=== PATIENT | male | born 1950 | race Caucasian/White ===

== ENCOUNTER 2019-06-04 21:13 | Observation (INO) | payer MEDICARE ==
[~2019-06-04] VITALS: Ht 180.3 cm; Wt 93.2 kg
[2019-06-04 21:45] LABS: BASOPHILS % (AUTO) 0.5 % (0-1); EOSINOPHILS # (AUTO) 0.4 X10'3 (0-0.9); EOSINOPHILS % (AUTO) 4.8 % (0-6); HEMATOCRIT 44.6 % (42.0-52.0); LYMPHOCYTES # (AUTO) 0.9 X10'3 (1.1-4.8); LYMPHOCYTES % (AUTO) 10.6 % (21-51); MEAN CORPUSCULAR HEMOGLOBIN 31.4 PG (27.0-31.0); MEAN CORPUSCULAR HGB CONC 33.7 g/dL (33.0-36.5); MONOCYTES # (AUTO) 1.2 X10'3 (0-0.9); MONOCYTES % (AUTO) 14.1 % (2-12); NEUTROPHILS # (AUTO) 6.1 X10'3 (1.8-7.7); PLATELET COUNT 195 X10'3 (140-440); RED BLOOD COUNT 4.79 X10'6 (4.70-6.10); RED CELL DISTRIBUTION WIDTH 13.4 % (11.5-14.5); WHITE BLOOD COUNT 8.7 X10'3 (4.5-11.0)
[2019-06-04 21:51] LABS: ALANINE AMINOTRANSFERASE 24 U/L (12-78); ALBUMIN 3.6 G/DL (3.4-5.0); ALBUMIN/GLOBULIN RATIO 0.9 (1.1-1.5); ALKALINE PHOSPHATASE 94 IU/L (46-116); ANION GAP 14 (8-16); ASPARTATE AMINO TRANSFERASE 13 U/L (10-37); BILIRUBIN,TOTAL 0.5 MG/DL (0.1-1.0); BLOOD UREA NITROGEN 15 MG/DL (7-18); BUN/CREATININE RATIO 12.6 (5.4-32.0); CALCIUM 8.2 MG/DL (8.5-10.1); CHLORIDE 105 MMOL/L (99-107); CREATININE 1.19 MG/DL (0.60-1.10); GLUCOSE 178 MG/DL (70-104); POTASSIUM 3.7 MMOL/L (3.5-5.1); SODIUM 138 MMOL/L (135-145); TOTAL CARBON DIOXIDE 19.3 MMOL/L (24-32); TOTAL PROTEIN 7.4 G/DL (6.4-8.2); eGFR 60 ML/MIN
[2019-06-04 21:52] LABS: PARTIAL THROMBOPLASTIN TIME 32 SECONDS (22-32)
[2019-06-04] MEDS ORDERED: FLO0.4C PO (22:28)
[2019-06-04] MEDS ORDERED: FINA5TAB11 PO (22:29)
--- NOTE | 2019-06-04 22:31 | NUR ---
Pt stated that he is taking Bactrim for a UTI.
[2019-06-04] MEDS ORDERED: methylPREDNISolone sod succ 125mg/2ml vial IV ONE (23:20)
[2019-06-04] MEDS ORDERED: diphenhydrAMINE 50 mg/ml inj IV ONE (23:20)
[2019-06-04] MEDS ORDERED: famotidine/PF 10 mg/ml inj IV ONE (23:20)
[2019-06-04] MEDS ORDERED: normal saline 1000ML IV soln IVB ONE (23:20)
[2019-06-04] MEDS ORDERED: iohexol 350MG/ML 100ml bottle IV ONE (23:22)
[2019-06-04 23:46] LABS: ABG BASE EXCESS -3.5 mmol/L (-2.0-3.0); ABG HCO3 19.6 mmol/L (22.0-26.0); ABG OXYGEN SATURATION 96.4 % (95-98); ABG PCO2 (T) 30.2 mmHg (35.0-45.0); ABG PH (T) 7.429 (7.350-7.450); ABG PO2 (T) 83.2 mmHg (83-108); ALLEN'S TEST Positive; FMetHb 0.1 % (0.3-1.12); FO2Hb 95.3 % (94-100); PATIENT TEMPERATURE 36.7; RESPIRATORY RATE (OBSERVED) 20 b/min; TOTAL HEMOGLOBIN 15.6 G/dl (14.0-17.9)
[2019-06-05] MEDS ORDERED: acetaminophen 325mg tablet PO PRN (03:05)
[2019-06-05] MEDS ORDERED: mag hydrox/Alum hydrox/simeth 30ml oral suspension PO PRN (03:05)
[2019-06-05] MEDS ORDERED: ondansetron/PF 4mg/2ml inj IV PRN (03:05)
[2019-06-05] MEDS ORDERED: magnesium hydroxide 30ml (MOM) UD suspension PO PRN (03:05)
[2019-06-05 05:30] VITALS: BP 123/84
--- NOTE | 2019-06-05 06:25 | NUR ---
Problems reprioritized. Patient report given, questions answered & plan of care reviewed with Madelyn MORRIS. Addendum: 06/05/19 at 0625 by Estefani Shah RN Amended: Links added.
[2019-06-05 08:00] VITALS: BP 109/80
[2019-06-05] MEDS: tamsulosin 0.4mg capsule PO SCH (08:37)
[2019-06-05] MEDS: finasteride 5mg tablet PO SCH (08:37)
[2019-06-05] MEDS: heparin, porcine 5000 units/ml vial SQ SCH ×2 (08:38→20:48)
[2019-06-05 12:00] VITALS: BP 104/76
[2019-06-05 12:02] LABS: CLARITY,URINE CLEAR (Clear); COLOR,URINE YELLOW (Yellow); GLUCOSE, URINE 500 mg/dl (Neg); KETONES,URINE NEGATIVE (Neg); LEUKOCYTE ESTERASE ,URINE NEGATIVE (Neg); NITRITES, URINE NEGATIVE (Neg); OCCULT BLOOD,URINE NEGATIVE (Neg); PROTEIN,URINE NEGATIVE (Neg); UROBILINOGEN,URINE 0.2 E.U/dL (0.2-1.0)
[2019-06-05 12:10] LABS: UA COLLECTION TYPE NON-SPECIFIED
--- NOTE | 2019-06-05 18:53 | NUR ---
Problems reprioritized. Patient report given, questions answered & plan of care reviewed with Pat RN.
[2019-06-05 19:30] VITALS: BP 107/68
[2019-06-06] VITALS: BP 113/63
[2019-06-06 05:11] LABS: BASOPHILS % (AUTO) 0.2 % (0-1); EOSINOPHILS # (AUTO) 0.1 X10'3 (0-0.9); EOSINOPHILS % (AUTO) 0.7 % (0-6); HEMATOCRIT 41.4 % (42.0-52.0); LYMPHOCYTES # (AUTO) 1.2 X10'3 (1.1-4.8); LYMPHOCYTES % (AUTO) 12.5 % (21-51); MEAN CORPUSCULAR HEMOGLOBIN 31.4 PG (27.0-31.0); MEAN CORPUSCULAR HGB CONC 33.7 g/dL (33.0-36.5); MEAN CORPUSCULAR VOLUME 93.1 FL (78-98); MEAN PLATELET VOLUME 8.2 FL (7.4-10.4); MONOCYTES # (AUTO) 1.5 X10'3 (0-0.9); MONOCYTES % (AUTO) 16.1 % (2-12); NEUTROPHILS # (AUTO) 6.5 X10'3 (1.8-7.7); NEUTROPHILS % (AUTO) 70.5 % (42-75); PLATELET COUNT 191 X10'3 (140-440); RED BLOOD COUNT 4.45 X10'6 (4.70-6.10); RED CELL DISTRIBUTION WIDTH 13.6 % (11.5-14.5); WHITE BLOOD COUNT 9.2 X10'3 (4.5-11.0)
[2019-06-06 05:20] LABS: ALANINE AMINOTRANSFERASE 20 U/L (12-78); ALBUMIN 3.1 G/DL (3.4-5.0); ALBUMIN/GLOBULIN RATIO 0.9 (1.1-1.5); ALKALINE PHOSPHATASE 77 IU/L (46-116); ANION GAP 12 (8-16); ASPARTATE AMINO TRANSFERASE 12 U/L (10-37); BILIRUBIN,TOTAL 0.3 MG/DL (0.1-1.0); BLOOD UREA NITROGEN 14 MG/DL (7-18); BUN/CREATININE RATIO 15.9 (5.4-32.0); CALCIUM 8.7 MG/DL (8.5-10.1); CHLORIDE 108 MMOL/L (99-107); CREATININE 0.88 MG/DL (0.60-1.10); GLUCOSE 118 MG/DL (70-104); SODIUM 142 MMOL/L (135-145); TOTAL CARBON DIOXIDE 22.1 MMOL/L (24-32); TOTAL PROTEIN 6.7 G/DL (6.4-8.2); eGFR 85 ML/MIN
[2019-06-06 07:00] VITALS: BP 123/71
[2019-06-06] MEDS: finasteride 5mg tablet PO SCH (08:33)
[2019-06-06] MEDS: tamsulosin 0.4mg capsule PO SCH (08:33)
[2019-06-06] MEDS: heparin, porcine 5000 units/ml vial SQ SCH (08:34)
[2019-06-06] MEDS ORDERED: DIPH25CA83 PO (08:53)
[2019-06-06] MEDS ORDERED: LORA-835 PO (08:53)
--- NOTE | 2019-06-06 09:45 | NUR ---
PT DISCHARGED IN STABLE CONDITION. LEFT IN PRIVATE VEHICLE WITH . IV DC CANULA INTACT. FOLLOW UP INSTRUCTIONS GIVEN, ALL QUESTIONS ANSWERED. ALL BELONGINGS IN HAND. Addendum: 06/06/19 at 1006 by Lili Higgins RN Amended: Links added.
== END 2019-06-06 09:45 | disposition home or self-care (01) ==
LOC: ER 21:14 → SUR 3N 06-05 05:33
PROVIDERS: ADMIT Internal Medicine; ATTEND Internal Medicine
DX: T36.8X5A Adverse effect of other systemic antibiotics, initial encounter (principal); R07.2 Precordial pain; N39.0 Urinary tract infection, site not specified; Z87.891 Personal history of nicotine dependence; Z88.2 Allergy status to sulfonamides; R59.0 Localized enlarged lymph nodes; J43.9 Emphysema, unspecified; E87.2 Acidosis; N28.9 Disorder of kidney and ureter, unspecified; Z85.46 Personal history of malignant neoplasm of prostate
CPT/HCPCS: 36415; 36600; 71045; 71275; 80053; 81003; 82803; 84484; 85018; 85025; 85610; 85730; 87081; 87088; 93005; 96372; 96374; 96375; 99284; G0378; J1200; J1644; J2930; J3490; J7030; Q9967; 96361; 99285